=== PATIENT | female | born 1955 | race Caucasian/White ===

== ENCOUNTER 2024-03-11 07:27 | Inpatient (IN) | payer OTHER, MEDICAID ==
[~2024-03-11] VITALS: Ht 165.1 cm; Wt 75.5 kg
[2024-03-11] MEDS: LORazepam 2 MG/ML VIAL IVP ONE (07:48)
[2024-03-11] MEDS: SODIUM CHLORIDE 0.9% 1,000 ML IV ONE (07:49)
[2024-03-11 08:25] LABS: GLUCOMETER DEV NAME(LOC) ERT.5; GLUCOSE,POINT OF CARE 88 MG/DL (70-110)
[2024-03-11] MEDS: LevETIRAcetam 1,000 MG in DEXTROSE 5%-WATER 100 ML IV ONE (08:29)
[2024-03-11 08:42] LABS: BASOPHILS % (AUTO) 0.4 % (0.0-2.0); EOSINOPHILS % (AUTO) 0.8 % (1.0-6.0); HEMATOCRIT 36.2 % (36-46); LYMPHOCYTES # (AUTO) 0.7 K/uL (1.0-4.8); LYMPHOCYTES % (AUTO) 9.8 % (22.0-44.0); MEAN CORPUSCULAR HEMOGLOBIN 28.9 pg (26.0-34.0); MEAN CORPUSCULAR HGB CONC 33.2 G/dL (31.0-37.0); MEAN CORPUSCULAR VOLUME 87 fL (80-100); MONOCYTES # (AUTO) 0.2 K/uL (0.1-1.0); MONOCYTES % (AUTO) 3.5 % (2.0-9.0); NEUTROPHILS # (AUTO) 5.8 K/uL (1.8-7.7); PLATELET COUNT (AUTO) 169 K/uL (150-450); RED BLOOD CELL COUNT(AUTO) 4.16 MIL/uL (4.00-5.20); RED CELL DISTRIBUTION WIDTH 14.5 % (11.5-14.5); WHITE BLOOD COUNT (AUTO) 6.8 K/uL (4.5-11.0)
[2024-03-11 08:45] LABS: NEUTROPHILS % (AUTO) 85.5 % (40.0-70.0)
[2024-03-11 09:46] LABS: ALANINE AMINOTRANSFERASE 17 U/L (12-78); ALBUMIN 3.6 g/dL (3.4-5.0); ALKALINE PHOSPHATASE 104 U/L (46-116); ANION GAP 7 mmol/L (8-16); ASPARTATE AMINOTRANSFERASE 19 U/L (15-37); BILIRUBIN,TOTAL 0.6 mg/dL (0.1-1.0); CALCIUM, TOTAL 8.9 mg/dL (8.8-10.5); CARBON DIOXIDE 30 mmol/L (22-29); CHLORIDE 99 mmol/L (98-107); CREATININE 0.99 mg/dL (0.60-1.30); GLOMERULAR FILTR. RATE CALC 56 mL/min (>60); GLUCOSE,RANDOM 91 mg/dL (70-110); POTASSIUM 4.1 mmol/L (3.5-5.1); SODIUM SERUM 136 mmol/L (136-145); TOTAL PROTEIN, SERUM 7.1 g/dL (6.4-8.2); TROPONIN I-HIGH SENSITIVITY 9 ng/L (<51); UREA NITROGEN, BLOOD 11 mg/dL (7-18)
[2024-03-11 09:47] LABS: INR 1.1 (0.9-1.1); PROTHROMBIN TIME 11.1 SEC (9.4-11.6)
[2024-03-11 09:49] LABS: LACTIC ACID 2.7 mmol/L (0.4-2.0)
[2024-03-11 10:03] LABS: B-TYPE NATRIURETIC PEPTIDE 123 pg/mL (0-100)
[2024-03-11] MEDS: NITROGLYCERIN 2% (1 GM=INCH) OINTMENT PACKET TP ONE (10:43)
[2024-03-11] MEDS: FUROSEMIDE 20 MG/2 ML VIAL IVP ONE (10:45)
[2024-03-11] MEDS: SODIUM CHLORIDE 0.9% 1,950 ML IV ONE (10:45)
[2024-03-11] MEDS: CefTRIAXone 1 GM/DEXTROSE 50 ML IV ONE (11:23)
[2024-03-11] MEDS: AZITHROMYCIN 500 MG/NS 250 ML IV ONE (12:01)
[2024-03-11 12:15] LABS: APPEARANCE,URINE CLEAR (CLEAR); BILIRUBIN,URINE NEGATIVE (NEGATIVE); COLOR,URINE COLORLESS (YELLOW); GLUCOSE, URINE (UA) NEGATIVE (NEGATIVE); KETONES,URINE NEGATIVE (NEGATIVE); LEUKOCYTE ESTERASE ,URINE NEGATIVE (NEGATIVE); NITRATE,URINE NEGATIVE (NEGATIVE); OCCULT BLOOD,URINE NEGATIVE (NEGATIVE); PROTEIN,URINE NEGATIVE (NEGATIVE); SPECIFIC GRAVITIY, URINE 1.008 (1.003-1.030); UROBILINOGEN,URINE <=1.0 mg/dL (<=1.0)
[2024-03-11 12:22] LABS: ALCOHOL, URINE DRUG SCREEN NEGATIVE (NEGATIVE); AMPHET/METH SCREEN,URINE NEGATIVE (NEGATIVE); BARBITURATE SCREEN, URINE NEGATIVE (NEGATIVE); BENZODIAZEPINES SCREEN,URINE NEGATIVE (NEGATIVE); CANNABINOID SCREEN,URINE NEGATIVE (NEGATIVE); COCAINE SCREEN,URINE NEGATIVE (NEGATIVE); METHADONE SCREEN, URINE POSITIVE (NEGATIVE); OPIATE SCREEN,URINE NEGATIVE (NEGATIVE); PHENCYCLIDINE SCREEN,URINE NEGATIVE (NEGATIVE)
[2024-03-11 13:04] VITALS: BP 148/82; PULSE 87; RESP 19; TEMP 98
[2024-03-11 14:15] VITALS: BP 130/86; PULSE 130; RESP 20
[2024-03-11] MEDS ORDERED: MORPHINE SULFATE 2 MG/ML SYRINGE IVP PRN (14:30)
[2024-03-11] MEDS ORDERED: BISACODYL 10 MG RECTAL RECTAL SUPPOSITORY PR PRN (14:30)
[2024-03-11] MEDS ORDERED: MAGNESIUM HYDROXIDE SUSPENSION 30 ML UDCUP PO PRN (14:30)
[2024-03-11] MEDS ORDERED: ONDANSETRON HCL 4 MG/2 ML VIAL IVP PRN (14:30)
[2024-03-11] MEDS: *CLINICAL-LEVOFLOXACIN IVPB DOSING CLINICAL ONE (14:32)
[2024-03-11] MEDS: DIGOXIN 250 MCG/ML 2 ML AMP IVP ONE (14:36)
[2024-03-11 14:45] VITALS: BP 135/80; PULSE 155; RESP 20
[2024-03-11] MEDS ORDERED: ALBUTEROL SULFATE 2.5 MG/0.5 ML NEB SOLUTION NEB PRN (14:45)
[2024-03-11] MEDS ORDERED: IPRATROPIUM BROMIDE 0.5 MG/2.5 ML NEB SOLUTION NEB PRN (14:45)
[2024-03-11] MEDS: LEVOFLOXACIN 750 MG/D5% WATER 150 ML IV SCH (15:00)
[2024-03-11 17:00] VITALS: BP 142/86; PULSE 146; RESP 20; TEMP 98.2
[2024-03-11] MEDS: AMIODARONE HCL 150 MG in DEXTROSE 5%-WATER 97 ML IV ONE (17:15)
[2024-03-11] MEDS ORDERED: HEPARIN SODIUM,PORCINE 5,000 UNITS/ML VIAL IVP PRN ×2 (17:15)
[2024-03-11] MEDS ORDERED: HEPARIN SODIUM 25000 UNITS/D5W 250 ML IV PRN (17:15)
[2024-03-11] MEDS: LORazepam 2 MG/ML VIAL IVP PRN (17:28)
[2024-03-11] MEDS: AMIODARONE HCL 360 MG in DEXTROSE 5%-WATER 242.8 ML IV ONE (17:30)
[2024-03-11] MEDS: HYDROCODONE/ACETAMINOPHEN 5-325 MG TABLET PO PRN (17:32)
[2024-03-11] MEDS: HEPARIN SODIUM,PORCINE 5,000 UNITS/ML VIAL SQ SCH (17:33)
[2024-03-11] MEDS: 1: MAGNESIUM SULFATE 2 GM, MVI, ADULT NO.1 WITH VIT K 10 ML, THIAMINE 100 MG, FOLIC ACID IV SCH (17:36)
[2024-03-11] MEDS: BENZONATATE 100 MG CAPSULE PO SCH (17:36)
[2024-03-11 17:52] LABS: BASOPHILS % (AUTO) 0.8 % (0.0-2.0); EOSINOPHILS % (AUTO) 0.2 % (1.0-6.0); HEMATOCRIT 35.9 % (36-46); LYMPHOCYTES # (AUTO) 1.8 K/uL (1.0-4.8); LYMPHOCYTES % (AUTO) 14.4 % (22.0-44.0); MEAN CORPUSCULAR HEMOGLOBIN 28.9 pg (26.0-34.0); MEAN CORPUSCULAR HGB CONC 33.5 G/dL (31.0-37.0); MEAN CORPUSCULAR VOLUME 86 fL (80-100); NEUTROPHILS # (AUTO) 9.5 K/uL (1.8-7.7); NEUTROPHILS % (AUTO) 76.6 % (40.0-70.0); PLATELET COUNT (AUTO) 200 K/uL (150-450); RED BLOOD CELL COUNT(AUTO) 4.16 MIL/uL (4.00-5.20); RED CELL DISTRIBUTION WIDTH 14.7 % (11.5-14.5); WHITE BLOOD COUNT (AUTO) 12.3 K/uL (4.5-11.0)
[2024-03-11] MEDS: HEPARIN SODIUM,PORCINE 5,000 UNITS/ML VIAL IVP ONE (18:00)
[2024-03-11] MEDS: MethylPREDNISolone SOD SUCC 125 MG/2 ML VIAL IVP SCH (18:00)
[2024-03-11 18:15] LABS: INR 1.1 (0.9-1.1); PROTHROMBIN TIME 11.4 SEC (9.4-11.6)
[2024-03-11] MEDS ORDERED: SODIUM CHLORIDE 0.9% 250 ML IV ONE (18:58)
[2024-03-11 19:18] VITALS: BP 147/98; PULSE 143; RESP 20; TEMP 97.9
[2024-03-11 19:24] LABS: TROPONIN I-HIGH SENSITIVITY 33 ng/L (<51)
[2024-03-11] MEDS: METOPROLOL TARTRATE 5 MG/5 ML VIAL IVP SCH (19:34)
[2024-03-11] MEDS: DOCUSATE SODIUM 100 MG CAPSULE PO SCH (21:00)
[2024-03-11] MEDS: LevETIRAcetam 500 MG in DEXTROSE 5%-WATER 100 ML IV SCH (22:39)
[2024-03-11] MEDS: AMIODARONE HCL 540 MG in DEXTROSE 5%-WATER 239.2 ML IV ONE (22:55)
[2024-03-11] MEDS: GuaiFENesin SR 600 MG ER TABLET PO SCH (23:01)
[2024-03-12] VITALS (10 sets, daily range): BP systolic 113–156; BP diastolic 56–85; PULSE 59–102; RESP 18–20; TEMP 97.8–98.2; O2SAT 99
[2024-03-12] MEDS: METOPROLOL TARTRATE 5 MG/5 ML VIAL IVP ONE (03:59)
[2024-03-12 08:02] LABS: BASOPHILS % (AUTO) 1.3 % (0.0-2.0); EOSINOPHILS % (AUTO) 0 % (1.0-6.0); HEMATOCRIT 39.4 % (36-46); HEMOGLOBIN 12.9 g/dL (12.0-16.0); LYMPHOCYTES # (AUTO) 1.2 K/uL (1.0-4.8); LYMPHOCYTES % (AUTO) 19.9 % (22.0-44.0); MEAN CORPUSCULAR HEMOGLOBIN 28.9 pg (26.0-34.0); MEAN CORPUSCULAR HGB CONC 32.9 G/dL (31.0-37.0); MEAN CORPUSCULAR VOLUME 88 fL (80-100); MONOCYTES # (AUTO) 0.1 K/uL (0.1-1.0); MONOCYTES % (AUTO) 2.2 % (2.0-9.0); NEUTROPHILS # (AUTO) 4.7 K/uL (1.8-7.7); NEUTROPHILS % (AUTO) 76.6 % (40.0-70.0); PLATELET COUNT (AUTO) 146 K/uL (150-450); RED BLOOD CELL COUNT(AUTO) 4.47 MIL/uL (4.00-5.20); RED CELL DISTRIBUTION WIDTH 14.6 % (11.5-14.5); WHITE BLOOD COUNT (AUTO) 6.1 K/uL (4.5-11.0)
[2024-03-12 08:19] LABS: ANION GAP 12 mmol/L (8-16); CALCIUM, TOTAL 8.6 mg/dL (8.8-10.5); CARBON DIOXIDE 25 mmol/L (22-29); CHLORIDE 102 mmol/L (98-107); CREATININE 0.81 mg/dL (0.60-1.30); GLOMERULAR FILTR. RATE CALC > 60 mL/min (>60); GLUCOSE,RANDOM 104 mg/dL (70-110); POTASSIUM 3.8 mmol/L (3.5-5.1); SODIUM SERUM 139 mmol/L (136-145); UREA NITROGEN, BLOOD 17 mg/dL (7-18)
[2024-03-12] MEDS: PANTOPRAZOLE SODIUM 40 MG DR TABLET PO SCH (10:15)
[2024-03-12] MEDS: AMIODARONE HCL 750 MG in DEXTROSE 5%-WATER 485 ML IV SCH (17:30)
[2024-03-12] MEDS: ALBUTEROL SULFATE 2.5 MG/0.5 ML NEB SOLUTION NEB SCH (19:51)
[2024-03-12] MEDS: IPRATROPIUM BROMIDE 0.5 MG/2.5 ML NEB SOLUTION NEB SCH (19:51)
[2024-03-13] VITALS (13 sets, daily range): BP systolic 115–179; BP diastolic 63–80; PULSE 71–117; RESP 16–20; TEMP 97.9–98.3; O2SAT 95–98
[2024-03-13] MEDS: ZOLPIDEM TARTRATE 5 MG TABLET PO PRN (02:40)
[2024-03-13 07:07] LABS: BASOPHILS % (AUTO) 0.2 % (0.0-2.0); EOSINOPHILS % (AUTO) 0 % (1.0-6.0); HEMATOCRIT 38.4 % (36-46); LYMPHOCYTES # (AUTO) 0.7 K/uL (1.0-4.8); LYMPHOCYTES % (AUTO) 8.4 % (22.0-44.0); MEAN CORPUSCULAR HEMOGLOBIN 29.2 pg (26.0-34.0); MEAN CORPUSCULAR HGB CONC 33.8 G/dL (31.0-37.0); MEAN CORPUSCULAR VOLUME 87 fL (80-100); MONOCYTES # (AUTO) 0.2 K/uL (0.1-1.0); MONOCYTES % (AUTO) 2.1 % (2.0-9.0); NEUTROPHILS # (AUTO) 7.4 K/uL (1.8-7.7); PLATELET COUNT (AUTO) 181 K/uL (150-450); RED BLOOD CELL COUNT(AUTO) 4.44 MIL/uL (4.00-5.20); RED CELL DISTRIBUTION WIDTH 14.3 % (11.5-14.5); WHITE BLOOD COUNT (AUTO) 8.3 K/uL (4.5-11.0)
[2024-03-13 07:10] LABS: NEUTROPHILS % (AUTO) 89.3 % (40.0-70.0)
[2024-03-13 07:33] LABS: ANION GAP 13 mmol/L (8-16); CALCIUM, TOTAL 8.8 mg/dL (8.8-10.5); CARBON DIOXIDE 24 mmol/L (22-29); CHLORIDE 99 mmol/L (98-107); CREATININE 0.83 mg/dL (0.60-1.30); GLOMERULAR FILTR. RATE CALC > 60 mL/min (>60); GLUCOSE,RANDOM 132 mg/dL (70-110); POTASSIUM 3.8 mmol/L (3.5-5.1); SODIUM SERUM 136 mmol/L (136-145); UREA NITROGEN, BLOOD 29 mg/dL (7-18)
[2024-03-13 08:08] LABS: RBC MORPHOLOGY COMMENT NORMAL RBC MORPH
[2024-03-13] MEDS: ASPIRIN 81 MG CHEWABLE TABLET PO SCH (14:28)
[2024-03-13] MEDS: VANCOMYCIN 1GM/WATER(PEG/NADA) 200 ML IV ONE (18:37)
[2024-03-13] MEDS: METOPROLOL TARTRATE 25 MG TABLET PO SCH (21:14)
[2024-03-14] VITALS (8 sets, daily range): BP systolic 141–167; BP diastolic 68–87; PULSE 76–95; RESP 16–20; TEMP 98–98.6; O2SAT 94–97
[2024-03-14 06:29] LABS: BASOPHILS % (AUTO) 0.3 % (0.0-2.0); EOSINOPHILS % (AUTO) 0 % (1.0-6.0); HEMATOCRIT 38.8 % (36-46); HEMOGLOBIN 13.1 g/dL (12.0-16.0); LYMPHOCYTES # (AUTO) 0.5 K/uL (1.0-4.8); LYMPHOCYTES % (AUTO) 5.3 % (22.0-44.0); MEAN CORPUSCULAR HEMOGLOBIN 29.2 pg (26.0-34.0); MEAN CORPUSCULAR HGB CONC 33.7 G/dL (31.0-37.0); MEAN CORPUSCULAR VOLUME 87 fL (80-100); MONOCYTES # (AUTO) 0.1 K/uL (0.1-1.0); MONOCYTES % (AUTO) 0.6 % (2.0-9.0); NEUTROPHILS # (AUTO) 9.3 K/uL (1.8-7.7); PLATELET COUNT (AUTO) 175 K/uL (150-450); RED BLOOD CELL COUNT(AUTO) 4.48 MIL/uL (4.00-5.20); RED CELL DISTRIBUTION WIDTH 14.6 % (11.5-14.5)
[2024-03-14 06:37] LABS: ANION GAP 8 mmol/L (8-16); CARBON DIOXIDE 26 mmol/L (22-29); CHLORIDE 100 mmol/L (98-107); CREATININE 0.77 mg/dL (0.60-1.30); GLOMERULAR FILTR. RATE CALC > 60 mL/min (>60); GLUCOSE,RANDOM 144 mg/dL (70-110); POTASSIUM 3.4 mmol/L (3.5-5.1); SODIUM SERUM 134 mmol/L (136-145); UREA NITROGEN, BLOOD 20 mg/dL (7-18)
[2024-03-14 07:44] LABS: NEUTROPHILS % (AUTO) 93.8 % (40.0-70.0)
[2024-03-14] MEDS: VANCOMYCIN 1GM/WATER(PEG/NADA) 200 ML IV SCH (08:14)
[2024-03-14] MEDS: APIXABAN 5 MG TABLET PO SCH (13:20)
[2024-03-14] MEDS: LORazepam 2 MG/ML VIAL IVP ONE (21:23)
[2024-03-14] MEDS: ACETAMINOPHEN 325 MG TABLET PO PRN (21:24)
[2024-03-15] MEDS: ROPINIRole HCL 0.25 MG TABLET PO ONE (00:46)
[2024-03-15 00:57] VITALS: BP 184/99; PULSE 82; RESP 20; TEMP 98
[2024-03-15 05:00] VITALS: BP 179/87; PULSE 82; RESP 20; TEMP 98.5
[2024-03-15 07:54] LABS: ANION GAP 10 mmol/L (8-16); CALCIUM, TOTAL 8.8 mg/dL (8.8-10.5); CARBON DIOXIDE 24 mmol/L (22-29); CHLORIDE 101 mmol/L (98-107); CREATININE 0.71 mg/dL (0.60-1.30); GLOMERULAR FILTR. RATE CALC > 60 mL/min (>60); GLUCOSE,RANDOM 107 mg/dL (70-110); POTASSIUM 3.9 mmol/L (3.5-5.1); SODIUM SERUM 135 mmol/L (136-145); UREA NITROGEN, BLOOD 16 mg/dL (7-18); VANCOMYCIN,RANDOM 13.9 mcg/mL (25.0-50.0)
[2024-03-15 08:01] VITALS: BP 170/95; PULSE 72; RESP 18; TEMP 97.4
[2024-03-15 11:50] VITALS: BP 157/94; PULSE 83; RESP 16; TEMP 98.3
[2024-03-15] MEDS ORDERED: ATOR20TA65 PO (17:08)
[2024-03-15] MEDS ORDERED: ESCI5SOL2 PO (17:08)
[2024-03-15] MEDS ORDERED: MELO5CAP3 PO (17:08)
[2024-03-15] MEDS ORDERED: ROPI1TAB46 PO (17:08)
[2024-03-15] MEDS ORDERED: TRAZ-184 PO (17:08)
[2024-03-15] MEDS ORDERED: LEVO25TA9 PO (17:08)
[2024-03-15] MEDS ORDERED: CALC-1000 PO (17:08)
[2024-03-15] MEDS ORDERED: LEVO150 PO (17:08)
[2024-03-15] MEDS ORDERED: BUPR-562 PO (17:08)
[2024-03-15] MEDS ORDERED: ASPI81TA87 PO (17:08)
[2024-03-15] MEDS ORDERED: METO25 PO (17:08)
[2024-03-15] MEDS ORDERED: APIXABAN 5 MG TABLET PO SCH (21:00)
[2024-03-15] MEDS ORDERED: METOPROLOL TARTRATE 50 MG TABLET PO SCH ×2 (21:00)
== END 2024-03-15 17:50 | disposition home or self-care (01) | DRG 100 ==
LOC: EMS 07:31 → 5S 11:01
PROVIDERS: ADMIT Internal Medicine; ATTEND Internal Medicine
DX: G40.909 Epilepsy, unspecified, not intractable, without status epilepticus (principal); G92.8 Other toxic encephalopathy; J69.0 Pneumonitis due to inhalation of food and vomit; J96.91 Respiratory failure, unspecified with hypoxia; J44.1 Chronic obstructive pulmonary disease with (acute) exacerbation; R78.81 Bacteremia; F10.139 Alcohol abuse with withdrawal, unspecified; K21.9 Gastro-esophageal reflux disease without esophagitis; F10.129 Alcohol abuse with intoxication, unspecified; I11.0 Hypertensive heart disease with heart failure; I50.9 Heart failure, unspecified; I25.10 Atherosclerotic heart disease of native coronary artery without angina pectoris; J98.4 Other disorders of lung; I48.0 Paroxysmal atrial fibrillation; F11.90 Opioid use, unspecified, uncomplicated; I25.2 Old myocardial infarction
CPT/HCPCS: 70450; 71045; 80048; 80053; 80202; 80307; 81003; 82962; 83605; 83880; 84484; 85025; 85610; 85730; 87040; 87077; 87205; 93005; 93306; 94640; 99291; G0480; J0282; J0456; J0696; J0712; J1160; J1644; J1940; J1956; J2060; J2919; J3411; J3475; J3490; J7030; J7050; J7060; Q9967; 36415-L1; 36415-TC; J7613